=== PATIENT | male | born 1950 | race Caucasian/White ===

== ENCOUNTER → 2022-06-17 08:29 | Outpatient (CLI) | payer OTHER, SELFPAY ==
--- NOTE | ~2022-06-17 | MR_ITS ---
EXAMINATION: MR shoulder LT wo con DATE: 06/17/2022 09:45 INDICATION: left shoulder anterior pain/soreness since 03/2022 . TECHNIQUE: Magnetic resonance imaging (MRI) of the left shoulder was performed without intravenous co ntrast. Sequences included axial PD-weighted FS FSE, coronal oblique PD-weighted FS FSE and T2-weight ed FS FSE, and sagittal oblique T2-weighted FS FSE and T1-weighted FSE. COMPARISON: None. FINDINGS: Coracoacromial arch: No significant downsloping of the type I acromion. Severe AC joint hypertrophy. Inferiorly directed d istal clavicular osteophyte. Rotator cuff: Focal rim rent tear in the distal fibers of the supraspinatus tendon. Generalized tendinosis of super ior cuff, with bursal sided fraying. The infraspinatus, teres minor, and subscapularis are intact. Biceps tendon and glenoid labrum: Mild long head of biceps tendinosis. Superior labral tear, possibly with intervening granulation tiss ue. Extensive degenerative signal change in the posterior glenoid labrum. Fluid: Moderate subacromial subdeltoid fluid. Small glenohumeral joint effusion. Bones/cartilage: Thinning of the glenohumeral cartilage. Nonaggressive appearing cyst in the proximal humerus. Degener ative subcortical cystic change in the lateral aspect of the humeral head, with reactive marrow edema . IMPRESSION: 1. Rim rent type tear of the supraspinatus, in a background of superior cuff tendinosis and bursal si ded fraying. 2. Moderate subacromial subdeltoid bursitis. 3. Superior labral tear, possibly with changes of partial healing. 4. Mild glenohumeral osteoarthritis. Severe AC joint hypertrophy. Reviewed, dictated and finalized at location [facility] IMPRESSION: 1. Rim rent type tear of the supraspinatus, in a background of superior cuff te ndinosis and bursal sided fraying. 2. Moderate subacromial subdeltoid bursitis. 3. Superior labral tear, possibly with changes of partial healing. 4. Mild glenohumeral osteoarthritis. Severe AC joint hypertrophy.
== END ==
PROVIDERS: PCP Internal Medicine; Visit Provider Physician Assistant Surgical
DX: M75.42 Impingement syndrome of left shoulder (principal); M75.82 Other shoulder lesions, left shoulder; M19.012 Primary osteoarthritis, left shoulder
CPT/HCPCS: 73221

== ENCOUNTER 2022-10-13 03:12 | Day surgery (SDC) | payer OTHER, SELFPAY ==
--- NOTE | 2022-10-02 13:50 | PC.NURSE ---
Report to the Outpatient Waiting Room, entrance under the green pavilion located off [facility], at time 0830 on date _10/13/22 . Planned Procedure Time: _1030 . Time changes happen often and if your time is changed the preop area will call you the afternoon before. - You and your visitor will be asked to self-screen and do not enter if you have any COVID symptoms. - A mask is optional within the hospital at this time. Patients may have clear liquids (water, carbonated beverages, clear teas, apple juice) until 3 hours prior to surgery with a maximum of 20 ounces. - No food from midnight until time of surgery - Infants may have breast milk until 4 hours before surgery, infant formula 6 hours prior to surgery. - Children will be allowed to drink immediately following surgery. If applicable, please bring a bottle or sippy cup to assist with drinking. Juice, water, soda, and popsicles are readily available. For infants on formula, please bring formula the day of surgery. Pacifiers are allowed. Take the following medications with a SIP of water the morning of surgery: __NONE DO NOT STOP ANY OF YOUR OTHER PRESCRIPTION MEDICATIONS PRIOR TO SURGERY ?EXCEPT THE FOLLOWING Medications to discontinue per physician ALL VITAMINS/SUPPLEMENTS 3 DAYS PRE OP . LAST DOSE 10/09/22 Please no make-up, nail american, hairspray, perfume, deodorant, or body powder the day of surgery. No jewelry (including any body piercings) or valuables the day of surgery, leave them at home. Please take a shower or bath the night before, or the morning of, surgery with an antibacterial soap. Wear comfortable, loose fitting clothing. Children are encouraged to wear pajamas. - Jewelry must be removed prior to entering the operating room. Rings and piercings that are not removed may be cut off. - The hospital will not accept responsibility for valuables. - Please leave all valuables, including medications, at home the day of surgery. If you are going home after surgery, a licensed drivers' cash clerk must drive you home. - NO public transportation without another adult if you receive anesthesia. - We recommend that an adult stay with you for 24 hours following discharge. - We also recommend that you do not drive, make important decision, drink alcoholic beverages, or take any drugs that were not prescribed by your health care provider for at least 24 hours after your discharge time. Follow any additional instructions given to you from your surgeon. If you or anyone in your household have experienced Covid symptoms in the past week, please notify your surgeon or the nurse liaison at the phone number below for possible testing. Telephone instructions given to ___PATIENT and asked if any additional questions and then verbalized understanding. Patient advised to call surgeon office or pre surgery nurse liaison [phone] if any additional questions.
[2022-10-02 13:57] VITALS: BMI 22.1
[2022-10-13] VITALS (9 sets, daily range): BP systolic 106–130; BP diastolic 60–74; PULSE 53–60; RESP 12–16; TEMP 36.2–36.3; O2SAT 97–100
--- NOTE | 2022-10-13 07:16 | WPDHPUPDATE1 ---
History and Physical Update Update Date/Time: 10/13/22 07:16 History and Physical has been reviewed, including an updated exam of the patient. There are NO changes in the patient's condition. Risks, benefits, and alternatives have been discussed and questions answered. Patient agrees to proceed with procedure.
--- NOTE | 2022-10-13 09:31 | WPDANESEPPF ---
Anes - Initial Pre Proc Eval Procedure: Operation Date: 10/13/22 10:30 Proposed Procedures p Left Shoulder Arthroscopic Rotator Cuff Repair, Subacromial Decompression - Gokul Cole MD Date/Time: 10/13/22 09:31 Surgeon: Gokul Cole MD Pre Op Diagnosis: Part Rot Cuff Tear& Impingement Lt Shoulder Patient Data Age: 72 Gender: M Height: 1.75 m Weight: 68.05 kg Allergies Allergy/AdvReac Type Severity Reaction Status Date / Time hay fever Allergy Mild Congested Uncoded 10/02/22 13:39 mold Allergy Mild Congested Uncoded 10/02/22 13:39 Home Medications Medication Instructions Recorded Confirmed Type antiarthritic combination no.2 900 900 mg PO DAILY 04/24/22 10/02/22 History mg tablet (glucosamine-chondroitin) coenzyme Q10 100 mg capsule 100 mg PO DAILY 04/24/22 10/02/22 History cyanocobalamin (vitamin B-12) 1,000 mcg PO DAILY 04/24/22 10/02/22 History 1,000 mcg capsule finasteride 5 mg tablet 5 mg PO DAILY 04/24/22 10/02/22 History multivitamin with minerals 1 tablet PO DAILY 04/24/22 10/02/22 History (Multiple Vitamin-Minerals tablet) omega-3 fatty acids 500 mg capsule 500 mg PO DAILY 04/24/22 10/02/22 History sildenafil 100 mg tablet (Viagra) 100 mg PO PRN PRN Erectile 04/24/22 10/02/22 History Dysfunction vitamins A,C,P-xkvw-dqeost 2,148 1 tablet PO BID 10/02/22 10/02/22 History mcg-113 mg-45 mg-17.4 mg tablet (PreserVision AREDS) Patient hx anesthesia problems: none Family hx anesthesia problems: none Results Review: All pre-operative results and documents have been reviewed as part of the pre-operative evaluation. [facility] Past Medical History Medical History (Updated 10/13/22 @ 09:32 by Farhan Osborne DO) BPH (benign prostatic hyperplasia) Hearing loss Traumatic metacarpophalangeal amputation of thumb Surgical History Surgical History H/O arthroscopic knee surgery History of colonoscopy Family History Family History Mother Hypertension Arthritis Father Heart disease Social History Social History Smoking status: Never smoker Alcohol intake: current Drinks per week: 14 Substance use: current Substance use type: marijuana Last use: 09/25/22 Lack of Transportation: No Lack of Food: Never True Current Housing: I Have Housing Concerned About Future Housing: No Difficulty Paying Gas/Electric Bills: No Difficulty Paying for Meds: No Currently Unemployed: No Education: High School Diploma/GED Difficulty w/ Childcare or Family Care: No Living arrangements: with family Spiritual care concerns: No Anes - Eval Final PreProcedure Day of Procedure 10/13/22 09:31 Patient weight: normal Heart: regular rate and rhythm Lungs: clear to auscultation and normal air movement Airway: Mallampati scale class II Neurological: alert and oriented Last oral intake: >/= 8 hours ASA classification: III Emergent: no Anesthetic plan: proceed Anesthesia type and monitoring: general ETT and standard monitoring Results Review: All pre-operative results and documents have been reviewed as part of the pre-operative evaluation. Informed Consent: The patient's anesthetic plan and its attendant risks and benefits were discussed with the patient/family/POA. Questions were solicited and answers provided to the satisfaction of the patient/family/POA.
--- NOTE | 2022-10-13 09:38 | WPDANESPNB ---
Anes - Peripheral Nerve Block Date/Time: 10/13/22 09:38 I have discussed with the patient/family/POA the placement of a peripheral nerve block for post-operative pain management, including associated risks, benefits, complications, and side effects. Alternative methods of post-operative analgesia were detailed. Questions were solicited and answers provided to the satisfaction of the patient/family/POA. Time-Out: A pre-procedural Time-Out was completed immediately before starting the procedure and confirmed: Patient Identification, Site, Procedure, Patient Position and the Availability of Requisite Equipment. Clinical Indications: Acute post-operative pain management requested by the operative surgeon. Nerve Block Insertion Note Anes-nerve block: interscalene left Patient position: supine Skin prep: chlorhexidine Needle: 22 gauge, stimulating, insulated echogenic needle. Needle length: 50 mm Technique: ultrasound Injectate: bupivacaine 0.5% with epi 5 mcg/ml (30cc- no epi) Observations: tolerated well Complications: none Procedure start time:: 1041 Procedure end time:: 1044
[2022-10-13] MEDS: LACTATED RINGERS 1,000 ML 30 ML IV CONT ×2 (09:45→13:07)
[2022-10-13] MEDS: ACETAMINOPHEN 500 MG TABLET 1000 MG PO (09:45)
[2022-10-13] MEDS: KETOROLAC 15 MG/ML VIAL (*BKC) IV PUSH (09:45)
[2022-10-13] MEDS: ceFAZolin 2 GM/D5W 50 ML 2 GM/50 ML BAG IVPB (10:58)
--- NOTE | 2022-10-13 16:01 | W.PM.PROC2 ---
Procedure Note - Detailed Date of Procedure 10/13/22 Pre-op Diagnosis Part Rot Cuff Tear& Impingement Lt Shoulder Post-op Diagnosis Other (1. Partial thickness rotator cuff tear 2. Subacromial impingement 3. Degenerative labral tear) Procedure Performed Left shoulder 1. Arthroscopic rotator cuff repair 2. Arthroscopic subacromial decompression 3. Arthroscopic labral debridement Surgeon Gokul Cole MD Anesthesia [facility] and [facility] ( interscalene block) Findings Low to mid grade articular sided supraspinatus tear. Approximately 20%. Rotator cuff cable intact. Partial-thickness bursal side tear in the more medial tendon at the musculotendinous junction. Tissue was split and frayed and rolled anterior and posterior. There was a significant unstable fragment of tendon medially displaced from the anterior section of the tear. The posterior section was freed from bursal adhesions and was reducible. Two margin convergence [id number] sutures reapproximated the tendon nicely and seemed to retention the infraspinatus fibers well. The footprint bursal side looked very good. A Regeneten repair was performed at this area, slightly overlapping and adjacent to bursal side damage more anterior and medial. Clear evidence of subacromial impingement as well as impingement on the inferior clavicular spurs was noted and treated with decompression with acromioplasty, and distal clavicle coplaning. The articular cartilage was good. There was xeti-et-heaqyhek degenerative fraying of the labrum which was treated with gentle debridement. Biceps anchor was stable and the biceps appeared normal as did the subscapularis. Description of Procedure Preoperative antibiotics were given. An interscalene block was administered in the preoperative area. The patient was bought brought to the operating room. A general anesthetic was administered. The patient was carefully positioned in the beach chair position. The head and neck were carefully positioned. The non operative extremity was also carefully positioned. The shoulder was prepped and draped in the usual sterile fashion. Examination was performed. Standard posterior and anterior arthroscopic portals were established. Inflow achieved with the arthroscopic pump using saline and epinephrine. The glenohumeral joint was carefully inspected. Gentle debridement of the superior and posterior labrum was performed. The articular supraspinatus was frayed and this was gently debrided approximately 20-30%. The rotator cuff cable appeared intact. Attention was turned to the subacromial space. A complete bursectomy was performed. The rotator cuff and footprint were lightly debrided. A modest acromioplasty was performed. Distal clavicle co planing was also performed as it appeared to be impinging. The tear configuration was carefully assessed. The bursal side tear was quite unusual with deep fraying in the bursal fibers 30 to 50% thickness. After freeing up the tissue from the bursa it appeared that this could be folded back over and sutured together repairing the tendon quite nicely and restoring the tension on the infraspinatus in particular. Using a spinal needle from the posterior portal 2 Orthocord sutures were shuttled through the posterior and anterior leaflets of the tear. These were tied arthroscopically, and reduce the tear quite nicely. Consideration was given to completing the articular tear, however the bursal component of the footprint appeared nearly normal and was only slightly soft in the region of the articular side tear, which was previously marked with a PDS suture. It was elected to perform a repair using the Regeneten implant. Some overlapping of the more medial bursal side tear was accomplished. Care was taken to avoid the biceps tendon anteriorly. The large graft fit very nicely and was secured with multiple PDS anchors in the tendon and 2 PEEK bone apollo laterally. The arthroscopic instruments
== END 2022-10-13 15:15 | disposition home or self-care (01) ==
PROVIDERS: PCP Family Medicine; Visit Provider Orthopaedic Surgery
PROC: (CPT 29805; principal; 2022-10-13 10:30)
DX: M75.112 Incomplete rotator cuff tear or rupture of left shoulder, not specified as traumatic (principal); M75.42 Impingement syndrome of left shoulder; M75.82 Other shoulder lesions, left shoulder; G89.18 Other acute postprocedural pain; N40.0 Benign prostatic hyperplasia without lower urinary tract symptoms; F12.90 Cannabis use, unspecified, uncomplicated
CPT/HCPCS: 29827; 29826; 64415; A4565; A9270; C1713; J0171; J0330; J0690; J1100; J1885; J2250; J2405; J2704; J3010; J7120

== ENCOUNTER 2023-01-03 09:45 | Outpatient (RCR) | payer OTHER, SELFPAY ==
--- NOTE | 2022-10-24 17:24 | PTOPEVAL1 ---
Assessment and note entered by Rosibel Bishop PT Evaluation Information Assessment Status Evaluation Diagnosis partial thickness rotator cuff tear, subacromial impingment, labaral tear Onset 10/13/22 Subjective Information Pt reports doing well with pain control. Pt took pain medication prior to session today. Pt reporting doing HEP as instructed to do and icing L shoulder 4-5x/day. Assessment PT Clinical Summary Pt is a 72 year old male who presents s/p L shoulder rotator cuff repair, subacromial decompression, and labral debridement on 10/13/22. Pt mainly limited by pain with passive Range of motion. Pt continues to wear abduction sling throughout the entire day. Pt noted to have mild postural deficits. Pt will benefit from skilled therapy to normalize posture, increase L shoulder strength, increase L shoulder range of motion and reduce overall pain to return to Prior level of function. Plan of Care Interventions Electrical Stimulation,Hot Pack/Cold Pack,Manual Therapy,Neuro Re-education,Patient/Caregiver Educati,Therapeutic Activities,Therapeutic Exercise,Ultrasound PT Services Indicated Yes Treatment Frequency and 2x/week for 12 weeks for 45 min sessions Duration These treatments will address the objective and functional deficits as defined above. The patient will be advanced safely and appropriately in order for the patient to progress towards his/her prior level of function. Additional exercises will be introduced and as well as a comprehensive home exercise program upon discharge, if needed, ?to ensure carryover of functional gains achieved in the clinic. This treatment plan has been reviewed and agreement upon by the patient.
[2022-11-14 08:37] VITALS: BP_SYST 119
--- NOTE | 2022-11-14 15:48 | PTOPPROG ---
Assessment and note entered by Leslie Thompson, PT Evaluation Information Assessment Status Progress Diagnosis rotator cuff tear, subacromial impingment, labral tear - repair Onset 10/13/22 Subjective Information Reports has been doing really well overall. States mowed lawn with riding mower primarily w/ the non -operative arm and then last night arm support fell of in the night so is a little sore in the the shoulder today. Feels like muscle soreness. Assessment PT Clinical Summary Pt is progressing well with this range, abilities and pain. Has increased to nearly WNL for shoulder flexion ROM, however cont to have greatest deficits in internal rotation ROM. Pt pain is minimal but notes some muscle soreness with increased activity yesterday. Pt is early in strengthening phases with isotonics and internal/ external rotation in neutral. Pt will benefit from cont therapy to continue improvements and return to pain-free PLOF Plan of Care Interventions Electrical Stimulation,Hot Pack/Cold Pack,Manual Therapy,Neuro Re-education,Patient/Caregiver Educati,Therapeutic Activities,Therapeutic Exercise PT Services Indicated Yes Treatment Frequency and 2x weekly x 4 weeks Duration These treatments will address the objective and functional deficits as defined above. The patient will be advanced safely and appropriately in order for the patient to progress towards his/her prior level of function. Additional exercises will be introduced and as well as a comprehensive home exercise program upon discharge, if needed, ?to ensure carryover of functional gains achieved in the clinic. This treatment plan has been reviewed and agreement upon by the patient.
--- NOTE | 2022-12-01 14:08 | PCPTNOTE ---
Patient called & cancelled scheduled appointment this date due to falling asleep and not waking up in time. Will resume treatment next week
--- NOTE | 2022-12-15 16:13 | PTOPPROG ---
Assessment and note entered by Leslie Thompson, PT Evaluation Information Assessment Status Progress Report Diagnosis rotator cuff tear, subacromial impingment, labaral tear - repair Onset 10/13/22 Subjective Information Pt reports feeling 70% improved overall. Is still cautious with lifting thing's I shouldn't Assessment PT Clinical Summary Pt is progressing well in his discomfort, range, and function. Overall strength with isolated testing is good however functional use has not been tested yet. Increased strengthening today within protocol. Focus on strengthening next phase of therapy to prepare for discharge and return to normal activity Plan of Care Interventions Electrical Stimulation,Hot Pack/Cold Pack,Manual Therapy,Neuro Re-education,Patient/Caregiver Educati,Therapeutic Activities,Therapeutic Exercise PT Services Indicated Yes Treatment Frequency and 2x weekly x 4 weeks Duration These treatments will address the objective and functional deficits as defined above. The patient will be advanced safely and appropriately in order for the patient to progress towards his/her prior level of function. Additional exercises will be introduced and as well as a comprehensive home exercise program upon discharge, if needed, ?to ensure carryover of functional gains achieved in the clinic. This treatment plan has been reviewed and agreement upon by the patient.
--- NOTE | 2023-01-03 10:21 | PTOPDC ---
Assessment and note entered by Leslie Thompson, PT Assessment Status Discharge Diagnosis rotator cuff tear, subacromial impingment, labral tear - repair Onset 10/13/22 Subjective Information Pt reports feeling beyond 80% better. Lifting hasn't been a problem . 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 Modified slightly on ladder to prevent over-extending. 5.5 hours start to finish without issue. Is also completely off Ibuprofen for a least 2 weeks. Is still mildly cautious with overhead activites. Regularly reaches upper cabinet for items without issue. Reported Pain Level Pain Score 0: Self Report Assessment PT Clinical Summary Pt has made exceptional progress with therpay after shoulder surgery. Active ROM LUE flrexion and abduction is within 5 degrees end-range of RUE . Cont to demo mild pec tightness and external rotation tightness when compared to RUE, however both are functional for ADLs and activities. Strength is less than half a grade different from RUE and functional for activities. Pt no longer requires over the counter ibuprofen, was able to return to a 5.5 hour job without difficulty or soreness. Pt reports still cautious with overhead activities but reports is due to caution not pain or limitation in ability. Pt has met all therpay related goals, thus pt is being discharged from therapy services due to completion of program
== END 2023-01-03 10:47 | disposition home or self-care (01) ==
LOC: ANHHIPT 09:45
PROVIDERS: PCP Family Medicine; Visit Provider Physician Assistant Surgical
DX: Z47.89 Encounter for other orthopedic aftercare (principal)
CPT/HCPCS: 97014; 97110; 97112; 97140; 97161; 97530; G0283